=== PATIENT | female | born 1975 | race Caucasian/White ===

== ENCOUNTER 2017-08-06 01:50 | Emergency (ER) | payer OTHER ==
[~2017-08-06] VITALS: Ht 157.5 cm; Wt 66.7 kg
[2017-08-06] MEDS ORDERED: PRENATAL + DHA1 EAC1 PO (02:30)
== END 2017-08-06 09:24 | disposition home or self-care (01) ==
LOC: ER 01:50 → EMR PED 01:51 → ER 01:51
DX: O20.8 Other hemorrhage in early pregnancy (principal); Z34.01 Encounter for supervision of normal first pregnancy, first trimester

== ENCOUNTER 2019-04-02 11:22 | Outpatient (CLI) | payer OTHER ==
[~2019-04-02 11:22] MED LIST: PRENATAL + DHA1 EAC1 PO
== END 2019-04-02 11:24 | disposition home or self-care (01) ==
LOC: RX STUDY 11:22
DX: R10.2 Pelvic and perineal pain (principal); N97.0 Female infertility associated with anovulation